=== PATIENT | male | born 1990 | race Caucasian/White ===

== ENCOUNTER 2018-07-06 08:54 | Emergency (ER) | payer SELFPAY ==
[2018-07-06] MEDS ORDERED: diphenhydrAMINE 25 MG Cap PO ONE (09:20)
--- NOTE | 2018-07-06 09:21 | EDM.PDOC ---
ED HPI GENERAL MEDICAL PROBLEM - General Chief Complaint: Allergic Reaction Stated Complaint: HIVES Time Seen by Provider: 07/06/18 08:56 Source of Information: Reports: Patient History Limitations: Reports: No Limitations - History of Present Illness INITIAL COMMENTS - FREE TEXT/NARRATIVE: History of present illness: []Patient started having a rash last night with a sore throat and fevers. His rash is itchy. He denies any nausea, vomiting, abdominal pain, shortness of breath or difficulty swallowing. Review of systems: As per history of present illness and below otherwise all systems reviewed and negative. Past medical history: As per history of present illness and as reviewed below otherwise noncontributory. Surgical history: As per history of present illness and as reviewed below otherwise noncontributory. Social history: No reported history of drug or alcohol abuse. Family history: As per history of present illness and as reviewed below otherwise noncontributory. Physical exam: General: Well developed, well nourished in NAD HEENT: Atraumatic, normocephalic, pupils reactive, negative for conjunctival pallor or scleral icterus, mucous membranes moist, throat clear, neck supple, nontender, trachea midline. Lungs: Clear to auscultation, breath sounds equal bilaterally, chest nontender. Heart: S1S2, regular, negative for clicks, rubs, or JVD. Abdomen: NABS, Soft, nondistended, nontender. Negative for masses or hepatosplenomegaly. Negative for costovertebral tenderness. Pelvis: Stable nontender. Genitourinary: Deferred. Rectal: Deferred. Extremities: Atraumatic, negative for cords or calf pain. Neurovascular unremarkable. Neuro: Awake, alert, oriented. Cranial nerves II through XII unremarkable. Cerebellum unremarkable. Motor and sensory unremarkable throughout. Exam nonfocal. Skin:warm and dry Diagnostics: Rapid strep negative Therapeutics: Normal saline, Benadryl, Solu-Medrol, Pepcid ED Course: Improved Impression: Allergic reaction Prescriptions: Medrol dose pack Plan: Take meds as directed, follow up with your primary care physician, return to ER if symptoms worsen or change. Definitive disposition and diagnosis as appropriate pending reevaluation and review of above. generalized body aches Pain Score (Numeric/FACES): 3 - Related Data Allergies Allergy/AdvReac Type Severity Reaction Status Date / Time shellfish derived Allergy Anaphylactic Verified 07/06/18 09:11 Shock tree nut Allergy Anaphylactic Verified 07/06/18 09:11 Shock Home Meds: Home Meds methylPREDNISolone [Medrol] 4 mg PO ASDIRECTED #1 dosepk 07/06/18 [Rx] Past Medical History - Past Health History Medical/Surgical History: Denies Medical/Surgical History - Infectious Disease History Infectious Disease History: Reports: Chicken Pox Social & Family History - Family History Family Medical History: Noncontributory - Tobacco Use Smoking Status *Q: Never Smoker - Caffeine Use Caffeine Use: Reports: Coffee - Recreational Drug Use Recreational Drug Use: No ED ROS ALLERGIC REACTION - Review of Systems Review Of Systems: ROS reveals no pertinent complaints other than HPI. ED EXAM GENERAL NO PERIP PULSE - Physical Exam Exam: See Below (See history of present illness) Course - Vital Signs Last Recorded V/S: Last Vital Signs Temp 98.5 F 07/06/18 09:11 Pulse 101 H 07/06/18 09:11 Resp 18 07/06/18 09:11 BP 151/90 H 07/06/18 09:11 Pulse Ox 96 07/06/18 09:11 - Orders/Labs/Meds Orders: Active Orders 24 hr Category Date Time Status CULTURE STREP A CONFIRMATION [] Stat Lab 07/06/18 09:25 Results STREP SCRN A RAPID W CULT CONF [] Stat Lab 07/06/18 09:25 Results Sodium Chloride 0.9% [Saline Flush] Med 07/06/18 09:56 Active 10 ml FLUSH ASDIRECTED PRN Sodium Chloride 0.9% [Saline Flush] Med 07/06/18 09:56 Active 2.5 ml FLUSH ASDIRECTED PRN Saline Lock Insert [OM.PC] Stat Oth 07/06/18 09:56 Ordered Medication Orders Sodium Chloride (Saline Flush) 10 ml FLUSH ASDIRECTED PRN PRN Reason: Keep Vein Open Sodium Chloride (Saline Flush) 2.5 ml FLUSH ASDIRECTED PRN PRN Reason: Keep Vein Open Meds: Medications Generic Name Dose Route Start Last Admin Trade Name Freq PRN Reason Stop Dose Admin Sodium Chloride 10 ml 07/06/18 09:56 Saline Flush FLUSH ASDIRECTED PRN Keep Vein Open Sodium Chloride 2.5 ml 07/06/18 09:56 Saline Flush FLUSH ASDIRECTED PRN Keep Vein Open Discontinued Medications Generic Name Dose Route Start Last Admin Trade Name Kristen PRN Reason Stop Dose Admin Diphenhydramine HCl 25 mg 07/06/18 09:20 07/06/18 09:31 Benadryl PO 07/06/18 09:21 25 mg ONETIME ONE Administration Diphenhydramine HCl 50 mg 07/06/18 10:36 07/06/18 10:41 Benadryl IVPUSH 07/06/18 10:37 50 mg ONETIME ONE Administration Famotidine 20 mg 07/06/18 09:56 07/06/18 10:08 Pepcid IVPUSH 07/06/18 09:57 20 mg ONETIME ONE Administration Sodium Chloride 1,000 mls @ 999 mls/hr 07/06/18 09:56 07/06/18 10:17 Normal Saline IV 07/06/18 10:56 999 mls/hr .Bolus ONE Administration Methylprednisolone Sodium Succinate 125 mg 07/06/18 09:56 07/06/18 10:11 Solu-Medrol IVPUSH 07/06/18 09:57 125 mg ONETIME ONE Administration Departure - Departure Time of Disposition: 11:35 Disposition: Home, Self-Care 01 Condition: Good Clinical Impression: Allergic reaction Qualifiers: Encounter type: initial encounter Qualified Code(s): T78.40XA - Allergy, unspecified, initial encounter - Discharge Information *PRESCRIPTION DRUG MONITORING PROGRAM REVIEWED*: Not Applicable *COPY OF PRESCRIPTION DRUG MONITORING REPORT IN PATIENT MINO: Not Applicable Prescriptions: methylPREDNISolone [Medrol] 4 mg PO ASDIRECTED #1 dosepk Referrals: PCP,Unknown [Primary Care Provider] - Additional Instructions: The following information is given to patients seen in the emergency department who are being discharged to home. This information is to outline your options for follow-up care. We provide all patients seen in our emergency department with a follow-up referral. The need for follow-up, as well as the timing and circumstances, are variable depending upon the specifics of your emergency department visit. If you don't have a primary care physician on staff, we will provide you with a referral. We always advise you to contact your personal physician following an emergency department visit to inform them of the circumstance of the visit and for follow-up with them and/or the need for any referrals to a consulting specialist. The emergency department will also refer you to a specialist when appropriate. This referral assures that you have the opportunity for follow-up care with a specialist. All of these measure are taken in an effort to provide you with optimal care, which includes your follow-up. Under all circumstances we always encourage you to contact your private physician who remains a resource for coordinating your care. When calling for follow-up care, please make the office aware that this follow-up is from your recent emergency room visit. If for any reason you are refused follow-up, please contact the [facility] Emergency Department at and asked to speak to the emergency department charge nurse. Take Benadryl 1-2 tablets as needed for itchy,Take meds as directed, follow up with your primary care physician, return to ER if symptoms worsen or change. [facility] [address] [place] [id number] - My Orders Last 24 Hours: My Active Orders 07/06/18 09:25 CULTURE STREP A CONFIRMATION [RM] Stat STREP SCRN A RAPID W CULT CONF [RM] Stat 07/06/18 09:56 Sodium Chloride 0.9% [Saline Flush] 10 ml FLUSH ASDIRECTED PRN Sodium Chloride 0.9% [Saline Flush] 2.5 ml FLUSH ASDIRECTED PRN Saline Lock Insert [OM.PC] Stat - Assessment/Plan Last 24 Hours: My Active Orders 07/06/18 09:25 CULTURE STREP A CONFIRMATION [RM] Stat STREP SCRN A RAPID W CULT CONF [RM] Stat 07/06/18 09:56 Sodium Chloride 0.9% [Saline Flush] 10 ml FLUSH ASDIRECTED PRN Sodium Chloride 0.9% [Saline Flush] 2.5 ml FLUSH ASDIRECTED PRN Saline Lock Insert [OM.PC] Stat
[2018-07-06] MEDS ORDERED: Sodium Chloride 0.9% 1,000 ML IV ONE (09:56)
[2018-07-06] MEDS ORDERED: methylPREDNISolone Sodium Succinate 125 MG/2 ML SDV IVPUSH ONE (09:56)
[2018-07-06] MEDS ORDERED: Sodium Chloride 0.9% 2.5 ML Syringe FLUSH PRN (09:56)
[2018-07-06] MEDS ORDERED: Famotidine 20 MG/2 ML SDV IVPUSH ONE (09:56)
[2018-07-06] MEDS ORDERED: Sodium Chloride 0.9% 10 ML Syringe FLUSH PRN (09:56)
[2018-07-06] MEDS ORDERED: diphenhydrAMINE 50 MG/ML SDV IVPUSH ONE (10:36)
== END 2018-07-06 12:14 | disposition home or self-care (01) ==
LOC: MW.ED 08:54
DX: T78.40XA Allergy, unspecified, initial encounter (principal); R21 Rash and other nonspecific skin eruption; J02.9 Acute pharyngitis, unspecified; Z91.013 Allergy to seafood
CPT/HCPCS: 87081; 87880; 96361; 96374; 96375; 99283; A9270; J1200; J2930; J3490; J7040; 99282

== ENCOUNTER 2018-07-07 20:27 | Emergency (ER) | payer SELFPAY ==
--- NOTE | 2018-07-07 20:40 | EDM.PDOC ---
ED HPI GENERAL MEDICAL PROBLEM - General Stated Complaint: hives all over body Time Seen by Provider: 07/07/18 20:36 Source of Information: Reports: Patient History Limitations: Reports: No Limitations - History of Present Illness INITIAL COMMENTS - FREE TEXT/NARRATIVE: HISTORY AND PHYSICAL: History of present illness: Patient is a 27-year-old male who presents to the emergency room for a second time within the last 24 hours with concerns of hives/rash which is painful, pruritic, and becoming more wide spread throughout his body. Patient was seen on 07/06/2017 for this rash and was given IV fluids, Pepcid, and Solumedrol. Strep screen was negative. He was placed on a Medrol Dosepak and informed to continuously take Benadryl as recommended. He was diagnosed with an allergic reaction. Patient reports he has been taking Benadryl as directed every 4 hours. Has not found any relief with the prescription or [id number] histamines. Fever, chills, chest pain, shortness of breath or any respiratory complaint. Denies any abdominal pain, nausea, vomiting, diarrhea, constipation or dysuria. States he has been able to eat and drink appropriately. No recent travel outside the [place]. Review of systems: As per history of present illness and below otherwise all systems reviewed and negative. Past medical history: As per history of present illness and as reviewed below otherwise noncontributory. Surgical history: As per history of present illness and as reviewed below otherwise noncontributory. Social history: See social history for further information Family history: As per history of present illness and as reviewed below otherwise noncontributory. Physical exam: General: Well-developed and well-nourished 27-year-old male. Alert and oriented. Nontoxic appearing and in no acute distress. HEENT: Atraumatic, normocephalic, pupils equal and reactive bilaterally, negative for conjunctival pallor or scleral icterus, mucous membranes moist, TMs normal bilaterally, throat clear, neck supple, nontender, trachea midline. No drooling or trismus noted. No meningeal signs. No hot potato voice noted. Lungs: Clear to auscultation, breath sounds equal bilaterally, chest nontender. Heart: S1S2, regular rate and rhythm without overt murmur Abdomen: Soft, nondistended, nontender. Negative for masses or hepatosplenomegaly. Negative for costovertebral tenderness. Pelvis: Stable nontender. Genitourinary: Deferred. Rectal: Deferred. Skin: Patient does have raised hives to the upper/lower extremities, anterior and posterior trunk. No particular pattern is noted. He states they are painful and pruritic. No fluid, crusted lesions or drainage from these sites. Extremities: Atraumatic, moves all extremities per self without difficulty or deficits. Neurovascular unremarkable. Neuro: Awake, alert, oriented. Cranial nerves II through XII unremarkable. Cerebellum unremarkable. Motor and sensory unremarkable throughout. Exam nonfocal. Notes: Hives do not appear infections, vasculitis, or cellulitic. Will perform lab work and give IV medications. I did have Dr. Bardales evaluate these rashes as well. He is agreeable with plan of care. Supportive care measures were reviewed and discussed. Voices understanding and is agreeable to plan of care. Denies any further questions or concerns at this time. Diagnostics: CBC, Monospot Therapeutics: IV fluids, Solu-Medrol, Epinephrine SubQ Impression: Urticaria Plan: 1. Continue to monitor for any triggers of an allergic reaction. 2. While symptomatic continue to routinely take Benadryl 50mg every 4-6 hours and Zantac 150mg twice daily. 3. Take the Medrol dose pack as prescribed. 4. You may use topical calamine lotion, cool tempid oatmeal baths, Aveeno bath/ lotions. 5. Please follow up with your Primary care doctor as we discussed. Return to the ED as needed and as discussed. Definitive disposition and diagnosis as appropriate pending reevaluation and review of above. Generalized Pain Score (Numeric/FACES): 6 - Related Data Allergies Allergy/AdvReac Type Severity Reaction Status Date / Time shellfish derived Allergy Anaphylactic Verified 07/07/18 20:39 Shock tree nut Allergy Anaphylactic Verified 07/07/18 20:39 Shock Home Meds: Home Meds methylPREDNISolone [Medrol] 4 mg PO ASDIRECTED #1 dosepk 07/06/18 [Rx] prednisoLONE [Millipred] 5 mg PO ASDIRECTED 07/07/18 [History] Past Medical History - Past Health History Medical/Surgical History: Denies Medical/Surgical History - Infectious Disease History Infectious Disease History: Reports: Chicken Pox Social & Family History - Family History Family Medical History: Noncontributory - Caffeine Use Caffeine Use: Reports: Coffee ED ROS GENERAL - Review of Systems Review Of Systems: ROS reveals no pertinent complaints other than HPI. ED EXAM, SKIN/RASH Exam: See Below (See dictation) Course - Vital Signs Last Recorded V/S: Last Vital Signs Temp 98.9 F 07/07/18 20:40 Pulse 93 07/07/18 20:40 Resp 16 07/07/18 20:40 BP 131/85 07/07/18 20:40 Pulse Ox 96 07/07/18 20:40 - Orders/Labs/Meds Orders: Active Orders 24 hr Category Date Time Status MONONUCLEOSIS SCREEN [CHEM] Stat Lab 07/07/18 21:15 Received Labs: Laboratory Tests 07/07/18 Range/Units 21:15 WBC 16.39 H (4.0-11.0) K/uL RBC 5.83 (4.50-5.90) M/uL Hgb 16.6 (13.0-17.0) g/dL Hct 47.7 (38.0-50.0) % MCV 81.8 (80.0-98.0) fL MCH 28.5 (27.0-32.0) pg MCHC 34.8 (31.0-37.0) g/dL RDW Std Deviation 38.3 (28.0-62.0) fl RDW Coeff of Shital 13 (11.0-15.0) % Plt Count 253 (150-400) K/uL MPV 10.60 (7.40-12.00) fL Neut % (Auto) 84.3 H (48.0-80.0) % Lymph % (Auto) 10.6 L (16.0-40.0) % [place] % (Auto) 4.9 (0.0-15.0) % Eos % (Auto) 0.1 (0.0-7.0) % Baso % (Auto) 0.1 (0.0-1.5) % Neut # (Auto) 13.8 H (1.4-5.7) K/uL Lymph # (Auto) 1.7 (0.6-2.4) K/uL [place] # (Auto) 0.8 (0.0-0.8) K/uL Eos # (Auto) 0.0 (0.0-0.7) K/uL Baso # (Auto) 0.0 (0.0-0.1) K/uL Nucleated RBC % 0.0 /100WBC Nucleated RBCs # 0 K/uL Meds: Medications Discontinued Medications Generic Name Dose Route Start Last Admin Trade Name Kristen PRN Reason Stop Dose Admin Epinephrine HCl 0.3 mg 07/07/18 20:51 07/07/18 21:27 Adrenalin SUBCUT 07/07/18 20:52 0.3 mg ONETIME ONE Administration Epinephrine HCl Confirm 07/07/18 21:03 07/07/18 21:18 Adrenalin Administered 07/07/18 21:04 Not Given Dose 1 mg .ROUTE .STK-MED ONE Sodium Chloride 1,000 mls @ 999 mls/hr 07/07/18 20:51 07/07/18 21:24 Normal Saline IV 07/07/18 21:51 999 mls/hr STAT ONE Administration Methylprednisolone Sodium Succinate 125 mg 07/07/18 20:51 07/07/18 21:24 Solu-Medrol IVPUSH 07/07/18 20:52 125 mg ONETIME ONE Administration Departure - Departure Time of Disposition: 21:53 Disposition: Home, Self-Care 01 Clinical Impression: Urticaria - Discharge Information Referrals: PCP,None [Primary Care Provider] - Additional Instructions: The following information is given to patients seen in the emergency department who are being discharged to home. This information is to outline your options for follow-up care. We provide all patients seen in our emergency department with a follow-up referral. The need for follow-up, as well as the timing and circumstances, are variable depending upon the specifics of your emergency department visit. If you don't have a primary care physician on staff, we will provide you with a referral. We always advise you to contact your personal physician following an emergency department visit to inform them of the circumstance of the visit and for follow-up with them and/or the need for any referrals to a consulting specialist. The emergency department will also refer you to a specialist when appropriate. This referral assures that you have the opportunity for follow-up care with a specialist. All of these measure are taken in an effort to provide you with optimal care, which includes your follow-up. Under all circumstances we always encourage you to contact your private physician who remains a resource for coordinating your care. When calling for follow-up care, please make the office aware that this follow-up is from your recent emergency room visit. If for any reason you are refused follow-up, please contact the [facility] Emergency Department at and asked to speak to the emergency department charge nurse. [facility] [address] [place] [address] [facility] [address] [place] [phone] 1. Continue to monitor for triggers of an allergic reaction as we discussed. 2. While symptomatic continue to routinely take Benadryl 50mg every 4-6 hours and Zantac 150mg twice daily. 3. Take the Medrol dose pack as prescribed. 4. You may use topical calamine lotion, cool tempid oatmeal baths, Aveeno bath/ lotions. 5. Please follow up with your Primary care doctor as we discussed. Return to the ED as needed and as discussed. - My Orders Last 24 Hours: My Active Orders 07/07/18 21:15 MONONUCLEOSIS SCREEN [CHEM] Stat - Assessment/Plan Last 24 Hours: My Active Orders 07/07/18 21:15 MONONUCLEOSIS SCREEN [CHEM] Stat
[2018-07-07] MEDS ORDERED: Sodium Chloride 0.9% 1,000 ML IV ONE (20:51)
[2018-07-07] MEDS ORDERED: methylPREDNISolone Sodium Succinate 125 MG/2 ML SDV IVPUSH ONE (20:51)
[2018-07-07] MEDS ORDERED: EPINEPHrine 1 MG/ML SDV ONE (21:03)
[2018-07-07] MEDS: EPINEPHrine 1 MG/1 ML Amp SUBCUT ONE ×2 (21:18→21:27)
== END 2018-07-07 22:15 | disposition home or self-care (01) ==
LOC: MW.ED 20:27
DX: L50.9 Urticaria, unspecified (principal); Z91.013 Allergy to seafood; Z91.018 Allergy to other foods
CPT/HCPCS: 36415; 85025; 86308; 96361; 96372; 96374; 99283; J0171; J2930; J7040

== ENCOUNTER 2018-07-09 15:04 | Emergency (ER) | payer SELFPAY ==
[2018-07-09] MEDS ORDERED: methylPREDNISolone Sodium Succinate 125 MG/2 ML SDV IVPUSH ONE (15:20)
[2018-07-09] MEDS ORDERED: Sodium Chloride 0.9% 1,000 ML IV ONE (15:20)
--- NOTE | 2018-07-09 15:20 | EDM.PDOC ---
ED HPI GENERAL MEDICAL PROBLEM - General Chief Complaint: Skin Complaint Stated Complaint: HIVES Time Seen by Provider: 07/09/18 15:13 - History of Present Illness INITIAL COMMENTS - FREE TEXT/NARRATIVE: HISTORY AND PHYSICAL: History of present illness: Patient 27-year-old white male who presents with a concern of rash this is his third visit in 3 days he was seen initially for what was felt to be urticaria etiology to be determined he was put on steroids and Benadryl and return for second visit with worsening of the rash with some discomfort he denies fever chills nausea vomiting was no clear allergen identified he does have a severe peanut allergy he has not had any exposure. He denies any tongue or lip swelling any shortness of breath dysphonia or dysphagia. Review of systems: As per history of present illness and below otherwise all systems reviewed and negative. Past medical history: As per history of present illness and as reviewed below otherwise noncontributory. Surgical history: As per history of present illness and as reviewed below otherwise noncontributory. Social history: No reported history of drug or alcohol abuse. Family history: As per history of present illness and as reviewed below otherwise noncontributory. Physical exam: HEENT: Atraumatic, normocephalic, pupils reactive, negative for conjunctival pallor or scleral icterus, mucous membranes moist, throat clear, neck supple, nontender, trachea midline. Lungs: Clear to auscultation, breath sounds equal bilaterally, chest nontender. Heart: S1S2, regular, negative for clicks, rubs, or JVD. Abdomen: Soft, nondistended, nontender. Negative for masses or hepatosplenomegaly. Negative for costovertebral tenderness. Pelvis: Stable nontender. Genitourinary: Deferred. Rectal: Deferred. Extremities: Atraumatic, negative for cords or calf pain. Neurovascular unremarkable. Neuro: Awake, alert, oriented. Cranial nerves II through XII unremarkable. Cerebellum unremarkable. Motor and sensory unremarkable throughout. Exam nonfocal. Skin: Diffuse maculopapular rash with urticarial regions some areas of near coalescence no petechiae Diagnostics: CBC CMP and CRP ESR and a rheumatoid factor Therapeutics: Saline 1 L bolus Solu-Medrol 125 mg IV Impression: #1 rash etiology to be determined Definitive disposition and diagnosis as appropriate pending reevaluation and review of above. all over where hives Pain Score (Numeric/FACES): 6 - Related Data Allergies Allergy/AdvReac Type Severity Reaction Status Date / Time shellfish derived Allergy Anaphylactic Verified 07/09/18 15:09 Shock tree nut Allergy Anaphylactic Verified 07/09/18 15:09 Shock Home Meds: Home Meds methylPREDNISolone [Medrol] 4 mg PO ASDIRECTED #1 dosepk 07/06/18 [Rx] diphenhydrAMINE [Benadryl] 50 mg PO Q4HR 07/09/18 [History] Past Medical History - Past Health History Medical/Surgical History: Denies Medical/Surgical History - Infectious Disease History Infectious Disease History: Reports: Chicken Pox Social & Family History - Family History Family Medical History: Noncontributory - Tobacco Use Smoking Status *Q: Never Smoker - Caffeine Use Caffeine Use: Reports: Coffee - Recreational Drug Use Recreational Drug Use: No ED ROS GENERAL - Review of Systems Review Of Systems: ROS reveals no pertinent complaints other than HPI. ED EXAM, SKIN/RASH Exam: See Below (See dictation) Course - Vital Signs Last Recorded V/S: Last Vital Signs Temp 35.9 C 07/09/18 15:10 Pulse 78 07/09/18 16:12 Resp 18 07/09/18 16:12 BP 121/83 07/09/18 16:12 Pulse Ox 99 07/09/18 16:12 - Orders/Labs/Meds Orders: Active Orders 24 hr Category Date Time Status LUPUS ANTICOAGULANT PANEL [REF] Stat Lab 07/09/18 15:23 Received Labs: Laboratory Tests 07/09/18 07/09/18 07/09/18 Range/Units 15:23 15:23 15:23 WBC 11.10 H (4.0-11.0) K/uL RBC 5.49 (4.50-5.90) M/uL Hgb 15.9 (13.0-17.0) g/dL Hct 45.3 (38.0-50.0) % MCV 82.5 (80.0-98.0) fL MCH 29.0 (27.0-32.0) pg MCHC 35.1 (31.0-37.0) g/dL RDW Std Deviation 38.3 (28.0-62.0) fl RDW Coeff of Shital 13 (11.0-15.0) % Plt Count 243 (150-400) K/uL MPV 10.50 (7.40-12.00) fL Neut % (Auto) 65.7 (48.0-80.0) % Lymph % (Auto) 25.3 (16.0-40.0) % [place] % (Auto) 8.2 (0.0-15.0) % Eos % (Auto) 0.7 (0.0-7.0) % Baso % (Auto) 0.1 (0.0-1.5) % Neut # (Auto) 7.3 H (1.4-5.7) K/uL Lymph # (Auto) 2.8 H (0.6-2.4) K/uL [place] # (Auto) 0.9 H (0.0-0.8) K/uL Eos # (Auto) 0.1 (0.0-0.7) K/uL Baso # (Auto) 0.0 (0.0-0.1) K/uL Nucleated RBC % 0.0 /100WBC Nucleated RBCs # 0 K/uL ESR 6 (0-14) mm/hr Sodium 139 (136-148) mmol/L Potassium 3.5 (3.5-5.1) mmol/L Chloride 103 (98-107) mmol/L Carbon Dioxide 26.9 (21.0-32.0) mmol/L BUN 19 H (7.0-18.0) mg/dL Creatinine 0.9 (0.8-1.3) mg/dL Est Cr Clr Drug Dosing 125.47 mL/min Estimated GFR (MDRD) > 60.0 ml/min Glucose 104 (74-106) mg/dL Calcium 8.8 (8.5-10.1) mg/dL Total Bilirubin 0.3 (0.2-1.0) mg/dL AST 12 L (15-37) IU/L ALT 25 (14-63) IU/L Alkaline Phosphatase 94 (46-116) U/L C-Reactive Protein (0.00-0.90) mg/dL Total Protein 7.6 (6.4-8.2) g/dL Albumin 3.8 (3.4-5.0) g/dL Globulin 3.8 (2.6-4.0) g/dL Albumin/Globulin Ratio 1.0 (0.9-1.6) Rheumatoid Factor Scrn 07/09/18 07/09/18 Range/Units 15:23 15:23 WBC (4.0-11.0) K/uL RBC (4.50-5.90) M/uL Hgb (13.0-17.0) g/dL Hct (38.0-50.0) % MCV (80.0-98.0) fL MCH (27.0-32.0) pg MCHC (31.0-37.0) g/dL RDW Std Deviation (28.0-62.0) fl RDW Coeff of Shital (11.0-15.0) % Plt Count (150-400) K/uL MPV (7.40-12.00) fL Neut % (Auto) (48.0-80.0) % Lymph % (Auto) (16.0-40.0) % [place] % (Auto) (0.0-15.0) % Eos % (Auto) (0.0-7.0) % Baso % (Auto) (0.0-1.5) % Neut # (Auto) (1.4-5.7) K/uL Lymph # (Auto) (0.6-2.4) K/uL [place] # (Auto) (0.0-0.8) K/uL Eos # (Auto) (0.0-0.7) K/uL Baso # (Auto) (0.0-0.1) K/uL Nucleated RBC % /100WBC Nucleated RBCs # K/uL ESR (0-14) mm/hr Sodium (136-148) mmol/L Potassium (3.5-5.1) mmol/L Chloride (98-107) mmol/L Carbon Dioxide (21.0-32.0) mmol/L BUN (7.0-18.0) mg/dL Creatinine (0.8-1.3) mg/dL Est Cr Clr Drug Dosing mL/min Estimated GFR (MDRD) ml/min Glucose (74-106) mg/dL Calcium (8.5-10.1) mg/dL Total Bilirubin (0.2-1.0) mg/dL AST (15-37) IU/L ALT (14-63) IU/L Alkaline Phosphatase (46-116) U/L C-Reactive Protein 1.20 H (0.00-0.90) mg/dL Total Protein (6.4-8.2) g/dL Albumin (3.4-5.0) g/dL Globulin (2.6-4.0) g/dL Albumin/Globulin Ratio (0.9-1.6) Rheumatoid Factor Scrn NEGATIVE Meds: Medications Discontinued Medications Generic Name Dose Route Start Last Admin Trade Name Kristen PRN Reason Stop Dose Admin Sodium Chloride 1,000 mls @ 999 mls/hr 07/09/18 15:20 07/09/18 15:30 Normal Saline IV 07/09/18 16:20 999 mls/hr STAT ONE Administration Methylprednisolone Sodium Succinate 125 mg 07/09/18 15:20 07/09/18 15:30 Solu-Medrol IVPUSH 07/09/18 15:21 125 mg ONETIME ONE Administration Departure - Departure Time of Disposition: 16:39 Disposition: Home, Self-Care 01 Condition: Good Clinical Impression: Urticaria - Discharge Information Referrals: PCP,Unknown [Primary Care Provider] - Forms: ED Department Discharge Additional Instructions: The following information is given to patients seen in the emergency department who are being discharged to home. This information is to outline your options for follow-up care. We provide all patients seen in our emergency department with a follow-up referral. The need for follow-up, as well as the timing and circumstances, are variable depending upon the specifics of your emergency department visit. If you don't have a primary care physician on staff, we will provide you with a referral. We always advise you to contact your personal physician following an emergency department visit to inform them of the circumstance of the visit and for follow-up with them and/or the need for any referrals to a consulting specialist. The emergency department will also refer you to a specialist when appropriate. This referral assures that you have the opportunity for followup care with a specialist. All of these measure are taken in an effort to provide you with optimal care, which includes your followup. Under all circumstances we always encourage you to contact your private physician who remains a resource for coordinating your care. When calling for followup care, please make the office aware that this follow-up is from your recent emergency room visit. If for any reason you are refused follow-up, please contact the [facility] emergency department at and asked to speak to the emergency department charge nurse. Continue Medrol Benadryl as directed follow-up primary care as discussed return as needed as discussed - My Orders Last 24 Hours: My Active Orders 07/09/18 15:23 LUPUS ANTICOAGULANT PANEL [REF] Stat - Assessment/Plan Last 24 Hours: My Active Orders 07/09/18 15:23 LUPUS ANTICOAGULANT PANEL [REF] Stat
[2018-07-09 15:56] LABS: CHLORIDE,CL 103 mmol/L (98-107); SODIUM,NA 139 mmol/L (136-148)
--- NOTE | 2018-07-09 16:51 | PCM.CONS ---
H&P History of Present Illness - General Date of Service: 07/09/18 - History of Present Illness Initial Comments - Free Text/Narative: 27 yo male with four day history of hives. Patient reports developing an itchy rash all over his body that waxes and wanes. He presented to third time to the ED today. He has been taking Medrol and Benadryl q4hrs. He reports the rash is getting worse. This morning he reported the rash was from head to toe. Due to the rash he bought a new bed and bed sheets. He received solumedrol in the ED and he reports the rash is feeling better. all over where hives Pain Score (Numeric/FACES): 6 - Related Data Allergies/Adverse Reactions: Allergies Allergy/AdvReac Type Severity Reaction Status Date / Time shellfish derived Allergy Anaphylactic Verified 07/09/18 15:09 Shock tree nut Allergy Anaphylactic Verified 07/09/18 15:09 Shock Home Medications: Home Meds methylPREDNISolone [Medrol] 4 mg PO ASDIRECTED #1 dosepk 07/06/18 [Rx] diphenhydrAMINE [Benadryl] 50 mg PO Q4HR 07/09/18 [History] Past Medical History - Past Health History Medical/Surgical History: Denies Medical/Surgical History - Infectious Disease History Infectious Disease History: Reports: Chicken Pox Social & Family History - Family History Family Medical History: Noncontributory - Tobacco Use Smoking Status *Q: Never Smoker - Caffeine Use Caffeine Use: Reports: Coffee - Recreational Drug Use Recreational Drug Use: No H&P Review of Systems - Review of Systems: Review Of Systems: ROS reveals no pertinent complaints other than HPI. Exam - Exam Exam: See Below - Vital Signs Vital Signs: Last Vital Signs Temp 35.9 C 07/09/18 15:10 Pulse 78 07/09/18 16:12 Resp 18 07/09/18 16:12 BP 121/83 07/09/18 16:12 Pulse Ox 99 07/09/18 16:12 Weight: 86.183 kg - Exam General: Alert, Oriented HEENT: Mucosa Moist & [place] Neck: Supple, Trachea Midline Lungs: Clear to Auscultation, Normal Respiratory Effort Cardiovascular: Regular Rate, Regular Rhythm GI/Abdominal Exam: Normal Bowel Sounds, Soft, Non-Tender Extremities: Normal Inspection, Non-Tender, No Pedal Edema Skin: Rash (urticarial rash on arms legs and torso, worse on the left flank) - Patient Data Lab Results Last 24 hrs: Laboratory Results - last 24 hr 07/09/18 07/09/18 07/09/18 Range/Units 15:23 15:23 15:23 WBC 11.10 H (4.0-11.0) K/uL RBC 5.49 (4.50-5.90) M/uL Hgb 15.9 (13.0-17.0) g/dL Hct 45.3 (38.0-50.0) % MCV 82.5 (80.0-98.0) fL MCH 29.0 (27.0-32.0) pg MCHC 35.1 (31.0-37.0) g/dL RDW Std Deviation 38.3 (28.0-62.0) fl RDW Coeff of Shital 13 (11.0-15.0) % Plt Count 243 (150-400) K/uL MPV 10.50 (7.40-12.00) fL Neut % (Auto) 65.7 (48.0-80.0) % Lymph % (Auto) 25.3 (16.0-40.0) % [place] % (Auto) 8.2 (0.0-15.0) % Eos % (Auto) 0.7 (0.0-7.0) % Baso % (Auto) 0.1 (0.0-1.5) % Neut # (Auto) 7.3 H (1.4-5.7) K/uL Lymph # (Auto) 2.8 H (0.6-2.4) K/uL [place] # (Auto) 0.9 H (0.0-0.8) K/uL Eos # (Auto) 0.1 (0.0-0.7) K/uL Baso # (Auto) 0.0 (0.0-0.1) K/uL Nucleated RBC % 0.0 /100WBC Nucleated RBCs # 0 K/uL ESR 6 (0-14) mm/hr Sodium 139 (136-148) mmol/L Potassium 3.5 (3.5-5.1) mmol/L Chloride 103 (98-107) mmol/L Carbon Dioxide 26.9 (21.0-32.0) mmol/L BUN 19 H (7.0-18.0) mg/dL Creatinine 0.9 (0.8-1.3) mg/dL Est Cr Clr Drug Dosing 125.47 mL/min Estimated GFR (MDRD) > 60.0 ml/min Glucose 104 (74-106) mg/dL Calcium 8.8 (8.5-10.1) mg/dL Total Bilirubin 0.3 (0.2-1.0) mg/dL AST 12 L (15-37) IU/L ALT 25 (14-63) IU/L Alkaline Phosphatase 94 (46-116) U/L C-Reactive Protein (0.00-0.90) mg/dL Total Protein 7.6 (6.4-8.2) g/dL Albumin 3.8 (3.4-5.0) g/dL Globulin 3.8 (2.6-4.0) g/dL Albumin/Globulin Ratio 1.0 (0.9-1.6) Rheumatoid Factor Scrn 07/09/18 07/09/18 Range/Units 15:23 15:23 WBC (4.0-11.0) K/uL RBC (4.50-5.90) M/uL Hgb (13.0-17.0) g/dL Hct (38.0-50.0) % MCV (80.0-98.0) fL MCH (27.0-32.0) pg MCHC (31.0-37.0) g/dL RDW Std Deviation (28.0-62.0) fl RDW Coeff of Shiatl (11.0-15.0) % Plt Count (150-400) K/uL MPV (7.40-12.00) fL Neut % (Auto) (48.0-80.0) % Lymph % (Auto) (16.0-40.0) % [place] % (Auto) (0.0-15.0) % Eos % (Auto) (0.0-7.0) % Baso % (Auto) (0.0-1.5) % Neut # (Auto) (1.4-5.7) K/uL Lymph # (Auto) (0.6-2.4) K/uL [place] # (Auto) (0.0-0.8) K/uL Eos # (Auto) (0.0-0.7) K/uL Baso # (Auto) (0.0-0.1) K/uL Nucleated RBC % /100WBC Nucleated RBCs # K/uL ESR (0-14) mm/hr Sodium (136-148) mmol/L Potassium (3.5-5.1) mmol/L Chloride (98-107) mmol/L Carbon Dioxide (21.0-32.0) mmol/L BUN (7.0-18.0) mg/dL Creatinine (0.8-1.3) mg/dL Est Cr Clr Drug Dosing mL/min Estimated GFR (MDRD) ml/min Glucose (74-106) mg/dL Calcium (8.5-10.1) mg/dL Total Bilirubin (0.2-1.0) mg/dL AST (15-37) IU/L ALT (14-63) IU/L Alkaline Phosphatase (46-116) U/L C-Reactive Protein 1.20 H (0.00-0.90) mg/dL Total Protein (6.4-8.2) g/dL Albumin (3.4-5.0) g/dL Globulin (2.6-4.0) g/dL Albumin/Globulin Ratio (0.9-1.6) Rheumatoid Factor Scrn NEGATIVE Result Diagrams: 07/09/18 15:23 07/09/18 15:23 Consult PN Assessment/Plan Problem List Initiated/Reviewed/Updated: Yes Plan: 27 yo male who presents with rash. I suspect this is Hives. I offered admission but he has refused. I would continue taking antihistamine and return if rash does not resolve, or fevers develop.
== END 2018-07-09 17:30 | disposition home or self-care (01) ==
LOC: MW.ED 15:04
DX: L50.9 Urticaria, unspecified (principal); Z91.013 Allergy to seafood; Z91.018 Allergy to other foods
CPT/HCPCS: 80053; 85025; 85613; 85652; 85730; 86140; 86430; 96361; 96374; 99283; J2930; J7040